=== PATIENT | female | born 1985 | race Caucasian/White ===

== ENCOUNTER → 2021-05-31 | Outpatient (CLI) | payer OTHER | END | disposition home or self-care (01) | LOC: LAB SHORT 12:27 | DX: N39.0 Urinary tract infection, site not specified (principal) | CPT/HCPCS: 87077; 87086; 87186 ==

== ENCOUNTER 2022-04-27 09:39 | Day surgery (SDC) | payer OTHER ==
[~2022-04-27] VITALS: Ht 170.2 cm; Wt 80.0 kg
[~2022-04-27 09:39] MED LIST: EUTHYROX137 MC1 PO
--- NOTE | 2022-04-27 14:50 | NUR ---
04/27/22 1450 Russ Dasilva WENT OPEN PROCEDURE AT 1440
--- NOTE | 2022-04-27 19:30 | NUR ---
PATIENT WAS GIVEN ROXICODONE, TYLENOL AND SIMETHICONE. ABOUT 5 MINUTES AFTER PT TOOK MEDICATION SHE VOMITED IN AN EMESIS BAG A FEW TIMES. SHE SAID THAT HER NAUSEA IS SO BAD THAT SHE IS CURRENTLY UNABLE TO PUT ICE IN HER MOUTH. CALL TO DR. LEI TO DISCUSS PLAN FOR IV MEDICATIONS WHILE SHE IS UNABLE TO TOLERATE MEDICATION ORALLY. ORDERS ARE SCOPOLAMINE PATCH X 72 HOURS, CONTINUE ORDER FOR PHENERGAN PRN, OKAY TO GIVE ANOTHER ZOFRAN DOSE NOW, MORPHINE (2MG FOR MILD PAIN, 4MG FOR MODERATE, 6MG FOR SEVERE) TO BE GIVEN FOR PAIN. IF PATIENT DOES NOT HAVE RELIEF WITH 6MG MORPHINE DOSE, OKAY TO GIVE DILAUDID DOSE AFTER 1 HOUR IF PT IS AWAKE/ALERT/AWARE AND VS ARE WNL. CALL DR. LEI PRIOR IF NO RELIEF.
[2022-04-28 07:45] LABS: BASOPHILS ABSOLUTE AUTO 0.02 K/mm3 (0.00-0.23); BASOPHILS PERCENT AUTO 0 % (0-2); EOSINOPHILS PERCENT AUTO 0 % (0-6); Hematocrit 35.1 % (33.0-51.0); Hemoglobin 12.4 g/dL (11.5-16.0); IMMATURE GRAN ABSOLUTE AUTO 0.05 K/mm3 (0.00-0.10); IMMATURE GRAN PERCENT AUTO 0 % (0-1); LYMPHOCYTES ABSOLUTE AUTO 1.07 K/mm3 (0.84-5.20); LYMPHOCYTES PERCENT AUTO 8 % (21-46); MONOCYTES ABSOLUTE AUTO 1.38 K/mm3 (0.16-1.47); MONOCYTES PERCENT AUTO 10 % (4-13); Mean Corpuscular HGB 31.1 pg (26.0-34.0); Mean Corpuscular HGB Conc 35.3 g/dL (31.5-36.5); Mean Corpuscular Volume 88 fL (80-100); Mean Platelet Volume 10.8 fL (9.1-12.4); NEUTROPHILS ABSOLUTE AUTO 11.53 K/mm3 (1.96-9.15); NEUTROPHILS PERCENT AUTO 82 % (41-73); Platelet Count 249 K/mm3 (150-400); RDW Standard Deviation 38.7 fL (35.1-46.3); Red Blood Cell Count 3.99 M/mm3 (3.80-5.20); White Blood Cell Count 14.05 K/mm3 (4.00-11.30)
[2022-04-28] MEDS ORDERED: ONDA4ODT MM (17:56)
[2022-04-28] MEDS ORDERED: OXAYDO5 M1 PO (17:56)
== END 2022-04-28 19:14 | disposition home or self-care (01) ==
LOC: ORSCMMR 09:39 → ORD 12:30 → ORSCMMR 12:30 → BC 17:54 → SURS 04-28 17:49 → ORSCMMR 04-28 19:14 → ORD 05-09 09:45
PROVIDERS: Obstetrics & Gynecology
PROC: 0UT94ZZ Resection of Uterus, Percutaneous Endoscopic Approach (ICD-10-PCS; principal; 2022-04-27 13:30)
PROC: 0UNF4ZZ Release Cul-de-sac, Percutaneous Endoscopic Approach (ICD-10-PCS; principal; 2022-04-27 13:30)
PROC: 0UT74ZZ Resection of Bilateral Fallopian Tubes, Percutaneous Endoscopic Approach (ICD-10-PCS; principal; 2022-04-27 13:30)
DX: N92.4 Excessive bleeding in the premenopausal period (principal); K66.0 Peritoneal adhesions (postprocedural) (postinfection); E03.9 Hypothyroidism, unspecified; Z79.899 Other long term (current) drug therapy
CPT/HCPCS: 36415; 85025; 86850; 86900; 86901; 88307; A9270; J0690; J1100; J1650; J1885; J2250; J2270; J2405; J2550; J2704; J2765; J3010; J7120